=== PATIENT | female | born 1980 | race Caucasian/White ===

== ENCOUNTER 2020-08-07 11:51 | Observation (INO) | payer OTHER ==
[~2020-08-07] VITALS: Ht 167.6 cm; Wt 76.2 kg
--- NOTE | 2020-08-07 11:55 | Emergency Department Note ---
History of Present Illnes History of Present Illness History of Present Illness This is a 40 year old female arrived to the ED with right lower quadrant abdominal pain [facility] since Saturday. Patient states the pain was a strong is 9/10 but is now 3/4. Patient states she had hysterectomy and right oophorectomy secondary to cyst in the past. Onset (how long ago): day(s) Radiation: Reports non-radiation Severity: moderate Duration (how long): day(s) Timing of current episode: intermittent Progression: waxing and waning Chronicity: new Relieving factors: immobilization Exacerbating factors: movement Past Medical/Family History Physician Review I have reviewed the patient's past medical and family history. Any updates have been documented here. Past Medical History Recent Fever: No Clinical Suspicion of Infectio: No New/Unexplained Change in Ment: No Past Medical History: None Past Surgical History: Hysterectomy Social History Smoking Cessation: Never Smoker Alcohol Use: None Any Illegal Drug Use: No TB Exposure/Symptoms: No Physically hurt or threatened: No Review of Systems Review of Systems Constitutional: Reports no symptoms EENTM: Reports no symptoms Cardiovascular: Reports no symptoms Respiratory: Reports no symptoms Gastrointestinal: Reports as per HPI, Reports abdominal pain Genitourinary: Reports no symptoms Musculoskeletal: Reports no symptoms Integumentary: Reports no symptoms Neurological: Reports no symptoms Psychological: Reports no symptoms Endocrine: Reports no symptoms Hematological/Lymphatic: Reports no symptoms Physical Exam Related Data Allergies: Coded Allergies: No Known Allergies (Unverified , 08/07/20) Vital signs reviewed: Yes Physical Exam CONSTITUTIONAL Constitutional: Present well-developed, Present well-nourished HENT HENT: Present normocephalic, Present atraumatic, Present oropharynx clear/moist, Present nose normal HENT L/R: Present left ext ear normal, Present right ext ear normal EYES Eyes: Reports PERRL, Reports conjunctivae normal NECK Neck: Present ROM normal PULMONARY Pulmonary: Present effort normal, Present breath sounds normal CARDIOVASCULAR Cardiovascular: Present regular rhythm, Present heart sounds normal, Present capillary refill normal, Present normal rate GASTROINTESTINAL Abdominal: Present soft, Present bowel sounds normal, Present tender GENITOURINARY Genitourinary: Present exam deferred SKIN Skin: Present warm, Present dry MUSCULOSKELETAL Musculoskeletal: Present ROM normal NEUROLOGICAL Neurological: Present alert, Present oriented x 3, Present no gross motor or sensory deficits PSYCHOLOGICAL Psychological: Present mood/affect normal, Present judgement normal Results Laboratory Lab results reviewed: Yes Laboratory comments Laboratory Tests Test 08/07/20 14:50 08/07/20 12:20 08/07/20 12:08 White Blood Count 7.71 x10e3/uL (4.8-10.8) Red Blood Count 4.59 x10e6/uL (3.6-5.1) Hemoglobin 12.9 g/dL (12.0-16.0) Hematocrit 39.8 % (34.2-44.1) Mean Corpuscular Volume 86.7 fL (81-99) Mean Corpuscular Hemoglobin 28.1 pg (28-32) Mean Corpuscular Hemoglobin Concent 32.4 g/dL (31-35) Red Cell Distribution Width 12.3 % (11.7-14.4) Platelet Count 356 x10e3/uL (140-360) Neutrophils (%) (Auto) 62.3 % (38.7-80.0) Lymphocytes (%) (Auto) 28.8 % (18.0-39.1) Monocytes (%) (Auto) 6.7 % (4.4-11.3) Eosinophils (%) (Auto) 1.3 % (0.0-6.0) Basophils (%) (Auto) 0.6 % (0.0-1.0) Neutrophils # (Auto) 4.8 (2.1-6.9) Lymphocytes # (Auto) 2.2 (1.0-3.2) Monocytes # (Auto) 0.5 (0.2-0.8) Eosinophils # (Auto) 0.1 (0.0-0.4) Basophils # (Auto) 0.1 (0.0-0.1) Absolute Immature Granulocyte (auto 0.02 x10e3/uL (0-0.1) Sodium Level 138 mmol/L (136-145) Potassium Level 3.7 mmol/L (3.5-5.1) Chloride Level 105 mmol/L (98-107) Carbon Dioxide Level 24 mmol/L (22-29) Anion Gap 12.7 mmol/L (8-16) Blood Urea Nitrogen 10 mg/dL (7-26) Creatinine 0.82 mg/dL (0.57-1.11) Estimat Glomerular Filtration Rate > 60 ML/MIN (60-) BUN/Creatinine Ratio 12 (6-25) Glucose Level 86 mg/dL (74-118) Calcium Level 9.3 mg/dL (8.4-10.2) Total Bilirubin 0.5 mg/dL (0.2-1.2) Aspartate Amino Transf (AST/SGOT) 17 IU/L (5-34) Alanine Aminotransferase (ALT/SGPT) 15 IU/L (0-55) Alkaline Phosphatase 63 IU/L (40-150) Total Protein 7.9 g/dL (6.5-8.1) Albumin 4.1 g/dL (3.5-5.0) Globulin 3.8 g/dL (2.3-3.5) Albumin/Globulin Ratio 1.1 (0.8-2.0) Lipase 16 U/L (8-78) Urine Color Yellow (YELLOW) Urine Clarity Clear (CLEAR) Urine pH 7 (5 - 7) Urine Specific [place] 1.015 (1.010-1.025) Urine Protein Negative (NEGATIVE) Urine Glucose (UA) Negative (NEGATIVE) Urine Ketones Negative (NEGATIVE) Urine Blood Small (NEGATIVE) Urine Nitrite Negative (NEGATIVE) Urine Bilirubin Negative (NEGATIVE) Urine Urobilinogen 0.2 mg/dL (0.2 - 1) Urine Leukocyte Esterase Negative (NEGATIVE) Urine RBC 6-10 /HPF (0-5) Urine WBC 6-10 /HPF (0-5) Urine Epithelial Cells Few /LPF (NONE) Urine Bacteria Rare /HPF (NONE) Imaging Imaging results reviewed: Yes Impressions CONCLUSION: Borderline mild dilatation of the appendix without significant surrounding inflammatory changes. Early appendicitis is not completely excluded. Recommend clinical correlation. Findings suggestive of gastroenteritis, which may be infectious or inflammatory. The above findings were discussed with Dr. Nikunj Corado on 08-07-2020 at 2:10 PM. Signed by: Dr. Gonzalez Connor MD on 08/07/2020 2:10 PM Assessment & Plan Medical Decision Making MDM 40-year-old well-appearing female arrived to the ED with right lower quadrant abdominal pain. Clinically patient appears to have appendicitis. She does not have elevated WBC count and is otherwise afebrile. Case discussed with Dr. De Leon, recommended no antibiotics or pain medications at this time. Patient admitted for observation. Assessment & Plan Final Impression: (1) Appendicitis Depart Disposition: ADMITTED NIKUNJ CORADO, Aug 07, 2020 11:55
[2020-08-07] MEDS ORDERED: ONDANSETRON HCL INJ 2MG/ML 2ML 2 MG/ML VIAL IV ONE (12:10)
[2020-08-07] MEDS ORDERED: SODIUM CHLORIDE 0.9% 1000ML 1,000 ML IV STA (12:10)
[2020-08-07] MEDS ORDERED: MORPHINE SULFATE INJ 4 MG/ML INJ 1ML IV PRN (12:15)
[2020-08-07 12:33] LABS: BASOPHILS # (AUTO) 0.1 (0.0-0.1); BASOPHILS % 0.6 % (0.0-1.0); EOSINOPHILS # (AUTO) 0.1 (0.0-0.4); EOSINOPHILS % 1.3 % (0.0-6.0); HEMATOCRIT 39.8 % (34.2-44.1); HEMOGLOBIN 12.9 g/dL (12.0-16.0); LYMPHOCYTES # (AUTO) 2.2 (1.0-3.2); LYMPHOCYTES % 28.8 % (18.0-39.1); MEAN CORPUSCULAR HEMOGLOBIN 28.1 pg (28-32); MEAN CORPUSCULAR HGB CONC 32.4 g/dL (31-35); MEAN CORPUSCULAR VOLUME 86.7 fL (81-99); MONOCYTES # (AUTO) 0.5 (0.2-0.8); MONOCYTES % 6.7 % (4.4-11.3); NEUTROPHILS # (AUTO) 4.8 (2.1-6.9); NEUTROPHILS % 62.3 % (38.7-80.0); PLATELET COUNT 356 x10e3/uL (140-360); RED BLOOD COUNT 4.59 x10e6/uL (3.6-5.1); RED CELL DISTRIBUTION WIDTH 12.3 % (11.7-14.4)
[2020-08-07 12:44] LABS: CLARITY,URINE CLEAR (CLEAR); COLOR,URINE YELLOW (YELLOW); LEUKOCYTE ESTERASE ,URINE NEGATIVE (NEGATIVE); NITRITE,URINE NEGATIVE (NEGATIVE); PROTEIN,URINE DIPSTICK NEGATIVE (NEGATIVE)
[2020-08-07 12:45] LABS: BACTERIA,URINE RARE /HPF; BILIRUBIN,URINE NEGATIVE (NEGATIVE); EPITHELIAL CELLS,URINE FEW /LPF; KETONES,URINE NEGATIVE (NEGATIVE); URINE UROBILINOGEN 0.2 mg/dL (0.2 - 1)
[2020-08-07 12:50] LABS: ALANINE AMINOTRANSFERASE 15 IU/L (0-55); ALBUMIN 4.1 g/dL (3.5-5.0); ALBUMIN/GLOBULIN RATIO 1.1 (0.8-2.0); ALKALINE PHOSPHATASE 63 IU/L (40-150); ANION GAP 12.7 mmol/L (8-16); BLOOD UREA NITROGEN 10 mg/dL (7-26); BUN/CREATININE RATIO 12 (6-25); CALCIUM 9.3 mg/dL (8.4-10.2); CARBON DIOXIDE 24 mmol/L (22-29); CHLORIDE 105 mmol/L (98-107); CREATININE, SERUM 0.82 mg/dL (0.57-1.11); EST GLOMERULAR FILTRATION RATE > 60 ML/MIN (60-); GLUCOSE 86 mg/dL (74-118); POTASSIUM 3.7 mmol/L (3.5-5.1); SODIUM 138 mmol/L (136-145)
[2020-08-07] MEDS ORDERED: SODIUM CHLORIDE 0.9% 50ML 50 ML ONE (13:25)
[2020-08-07] MEDS ORDERED: IOPAMIDOL 370 MG/ML 200 ML INFUS..BTL INJ ONE (13:26)
--- NOTE | 2020-08-07 14:13 | Diagnostic Imaging Report ---
EXAM: CT Abdomen and Pelvis WITH contrast INDICATION: Abdominal Pain COMPARISON: None. TECHNIQUE: Abdomen and pelvis were scanned utilizing a multidetector helical scanner from the lung base to the pubic symphysis after administration of IV contrast. Coronal and sagittal reformations were obtained. Routine protocol was performed. Scan was performed during portal venous phase. IV CONTRAST: 100 cc of Isovue-370. ORAL CONTRAST: None. COMPLICATIONS: None RADIATION DOSE: Total DLP: 358 mGy*cm Estimated effective dose: (DLP x 0.015 x size factor) mSv CTDIvol has been reviewed. It is below the limits set by the Radiation Protocol Committee (RPC). FINDINGS: LINES and TUBES: None. LOWER THORAX: Unremarkable HEPATOBILIARY: No evidence of mass. Subcentimeter right hepatic lobe hypodensity is too small to characterize, but likely represents a cyst. No biliary ductal dilation. GALLBLADDER: No radio-opaque stones or sludge. No wall thickening. SPLEEN: No splenomegaly. PANCREAS: No focal masses or ductal dilatation. ADRENALS: No adrenal nodules KIDNEYS/URETERS: Kidneys enhance symmetrically. No evidence of hydronephrosis, solid mass, or stone. Bilateral renal cortical scarring. GI TRACT: No evidence of wall thickening or distension. The appendix is mildly dilated, measuring up to 7 mm without significant surrounding inflammatory changes (series 2, image 68). There is mild wall thickening within jejunal loops and in the stomach. The stomach is fluid-filled. PELVIC ORGANS/BLADDER: Unremarkable. LYMPH NODES: No lymphadenopathy. VESSELS: Unremarkable. PERITONEUM / RETROPERITONEUM: No free air or fluid. BONES AND SOFT TISSUES: Unremarkable. CONCLUSION: Borderline mild dilatation of the appendix without significant surrounding inflammatory changes. Early appendicitis is not completely excluded. Recommend clinical correlation. Findings suggestive of gastroenteritis, which may be infectious or inflammatory. The above findings were discussed with Dr. Nikunj Ryan on 08-07-2020 at 2:10 PM. Signed by: Dr. Gonzalez Connor MD on 08/07/2020 2:10 PM
--- NOTE | 2020-08-07 14:43 | NUR ---
DR. Pankaj LESTER IN TO SEE THE PATIENT
--- OUTSIDE RECORDS SUMMARY | 2020-08-07 14:45 | XMS REPORT | Continuity of Care Document ---
Author Author [facility] t Organization [facility] Address [address] [place] [address] Phone Unavailable Care Team Providers Care [employer] Name Role Phone Asked, Pcp No PCP Unavailable Shahram RYAN AMBICA Attphys Unavailable [place], Seven Liam Attphys [place], S Liam Attphys Payers Payer Name Policy Type Policy Number Effective Date Expiration Date S ource Problems Condition Name Condition Details Condition Category Status Onset Date Resolution Date Last Treatment Date Treating Clinician Comments Source Persistent insomnia (disorder) Persistent insomnia (disorder) Active 08/13/2016 Problem 11/29/2018 Data migrated from [employer] on 12/20/2016. Mild to moderate chronic insomnia may be playing a role. Originally documented as Persistent disorder of initiating or maintaining sleep. [facility] Active 2016-08-13 00:00:00 2018-11-29 12:03:07 Thiago Whitaker Migraine (disorder) Migr kathleen (disorder) Resolved Problem 11/29/2018 [facility] Problem Resolved 2018-11-29 12:03:07 Thiago Whitaker Neck pain (finding) Neck pain (finding) Resolved Problem 11/29/2018 [facility] Problem Resolved 2018-11-29 12:03:07 Thiago Whitaker Persistent disorder of initiating or maintaining sleep Persistent disorder of initiating or maintaining sleep Active Problem 08/14/2016 Liam Gandhi Problem Active 2016-08-14 02:03:49 Thiago Whitaker Common migraine with intractable migraine Common migraine with intractable migraine Active Diagnosis 08/14/2016 Liam Gandhi Diagnosis Active 2016-08-14 02:03:49 Thiago Whitaker History of Past Illness Condition Name Condition Details Condition Category Status Onset Date Resolution Date Last Treatment Date Treating Clinician Comments Source Refractory migraine without aura (disorder) Refractory migraine without aura (disorder) Resolved 08/13/2016 Problem 11/29/2018 Data migrated from [employer] on 12/20/2016. The patient has prolonged common migraine with 4-9 migraines per month. Originally documented as Common migraine with intractable migraine. [facility] Problem Resolved 2016-08-13 00:00:00 2018-11-29 12:03:07 2018-11-29 12:03:07 Jonna Whitaker Allergies, Adverse Reactions, Alerts Allergy Name Allergy Type Status Severity Reaction(s) Onset Date Inacti ve Date Treating Clinician Comments Source No Known Allergies DA Active U 2018-08-04 00:00:00 [facility] No Known Allergies DA Active U 2018-07-30 00:00:00 [facility] N.K.D.A. N.K.D.A. Active Info Not Available 2016-08-13 00:00:00 Thiago Whitaker No Known Allergies DA Active U 2013-01-02 00:00:00 [facility] Family History Family Member Diagnosis Comments Start Date Stop Date Source Natural brother Heart disease Leonid Laughlin Natural father Hypertension Dario Laughlin Natural sister Heart disease Dario Laughlin Social History Social Habit Start Date Stop Date Quantity Comments Source Sex Assigned At Irina fan Truman Tobacco use and exposure 2018-06-24 00:00:00 2018-06-24 00:00:00 Shahid arguelles used Dario Laughlin Alcohol intake 2018-06-24 00:00:00 2018-06-24 00:00:00 Current drinker of alcohol (finding) Dario Laughlin Social History 2017-04-26 14:37:47 2017-04-26 14:37:47 Thiago Whitaker Highestlevelofeducationcompleted: 2016-08-13 00:00:00 2016-08-13 00:0 0:00 Thiago Whitaker Smoking Status Start Date Stop Date Source Never smoker Dario odonnell Medications Ordered Medication Name Filled Medication Name Start Date Stop Da te Current Medication? Ordering Clinician Indication Dosage Frequency Signature (SIG) Comments Components Source SUMAtriptan (IMITREX) 50 MG tablet 2018-04-15 13:58:48 Yes 50mg Take 50 mg by mouth once as needed for migraine. May repeat in 2 hours if unresolved. Do not exceed 200 mg in 24 hours. Leonid [place] Truman SUMAtriptan 50 mg oral tablet 2017-11-06 18:55:45 Yes 50 mg = 1 tab, PO, ONCE, PRN Headache, may repeat dose in 2 hours if needed, # 27 tab, 3 Refill(s), Pharmacy: [facility] [place] SUMAtriptan (IMITREX) 50 MG tablet 2017-11-06 00:00:00 Yes
50 mg = 1 tab, PO, ONCE, PRN Headache, may repeat dose in 2 hours if needed, # 27 tab, 3 Refill(s), Pharmacy: [facility] [place] SUMAtriptan 50 mg oral tablet 2017-10-30 16:36:02 No 50 mg = 1 tab, PO, ONCE, PRN Headache, may repeat dose in 2 hours if needed, # 27 tab, 3 Refill(s), [facility] Mot[facility] 800 mg oral tablet 2017-10-30 16:08:00 Yes 800 mg = 1 tab, PO, Daily, 0 Refill(s) Thiago Whitaker Fluconazole 2016-08-14 02:03:[address] Liam Gandhi (Prior Auth: Rx Ref#:[id number]) [facility] [place] Tylenol Extra Strength 2016-08-14 02:03:[address] Hanh Gandhi 4 tablets as needed Thiago Whitaker Fioricet 2016-08-13 00:00:[address] Liam Gandhi 1-2 capsules as needed [facility] [place] Sumatriptan Succinate 2016-08-13 00:00:[address] Liam Gandhi 1 tablet as needed one time Thiago Whitaker Vital Signs Vital Name Observation Time Observation Value Comments Source Weight 2017-10-30 15:36:00 Thiago Whitaker Systolic (mm Hg) 2017-10-30 15:36:00 [facility] [place] Diastolic (mm Hg) 2017-10-30 15:36:00 [facility] [place] Heart Rate 2017-10-30 15:36:00 [facility] [place] Weight 2016-08-13 18:00:00 [facility] [place] Height 2016-08-13 18:00:00 [facility] [place] Heart Rate 2016-08-13 18:00:00 [facility] [place] Diastolic (mm Hg) 2016-08-13 18:00:00 [facility] [place] Systolic (mm Hg) 2016-08-13 18:00:00 Ronnell [facility] [place] Procedures Procedure Date / Time Performed Performing Clinician Renuka piedra Tubal ligation 2003-01-30 05:00:00 [facility] Her mcdonald section 1996-08-05 05:00:00 [facility] Cliff rmann Plan of Care Planned Activity Planned Date Details Comments Source Future Scheduled Test 2020-05-21 00:00:00 INFLUENZA VACCINE [code = INFLUENZA VACCINE] Dario Laughlin Future Scheduled Test 1999 00:00:00 Screening for rupesh gnant neoplasm of cervix (procedure) [code = 193752667] Dario odonnell Encounters Start Date/Time End Date/Time Encounter Type Admission Type Attendi [facility] Care Department Encounter ID Source 2018-05-12 12:45:00 2018-05-12 12:45:00 Outpatient Hiram, P nick [place] MHMISCHER MHMISCHER [id number] 2018-05-12 12:45:00 2018-05-12 12:45:00 Outpatient Hiram, P nick [place] MHMISCHER MHMISCHER [id number] 2017-11-05 11:34:00 2017-11-06 23:59:59 Outpatient MHMIS JUANI MHMISCHER [id number] 2017-10-30 09:45:00 2017-10-30 23:59:59 Outpatient [place], Phi lip S MHMISCHER MHMISCHER [id number] 2017-10-30 09:45:00 2017-10-30 23:59:59 Outpatient Hiram, Phi lip S MHMISCHER MHMISCHER [id number] 2017-10-30 09:45:00 2017-10-30 23:59:59 Outpatient Hiram, Phi lip S MHMISCHER MHMISCHER [id number] 2016-08-13 13:00:00 2016-08-13 13:00:00 Outpatient Liam Gandhi MD, KLARISSA Gandhi MD, KLARISSA [id number] [employer] Results Test Description Test Time Test Comments Results Result Comments Source CT ABDOMEN/PELVIS W 2020-08-07 13:47:[address] [facility] : 1980 Sex: F [place] [address] Patient Name: JESUS DUARTE MR #: [id number] : 1980 Age/Sex: 40/F Req #: [id number] Adm Physician: Ordered by: CHRISTIANO RYAN DO Report #: [id number] Location: ER Room/Bed: Procedure: [id number] CT/CT ABDOMEN/PELVIS W Exam Date: 08/07/20 Exam Time: 1324 REPORT STATUS: Signed EXAM: CT Abdomen and Pelvis WITH contrast INDICATION: Abdominal Pain COMPARISON: None. TECHNIQUE: Abdomen and pelvis were scanned utilizing a multidetector helical scanner from the lung base to the pubic symphysis after administration of IV contrast. Coronal and sagittal reformations were obtained. Routine protocol was performed. Scan was performed during portal venous phase. IV CONTRAST: 100 cc of Isovue-370. ORAL CONTRAST: None. COMPLICATIONS: None RADIATION DOSE: Total DLP: 358 mGy*cm Estimated effective dose: (DLP x 0.015 x size factor) mSv CTDIvol has been reviewed. It is below the limits set by the Radiation Protocol Committee (RPC). FINDINGS: LINES and TUBES: None. LOWER THORAX: Unremarkable HEPATOBILIARY: No evidence of mass. Subcentimeter right hepatic lobe hypodensity is too small to characterize, but likely represents a cyst. No biliary ductal dilation. GALLBLADDER: No radio-opaque stones or sludge. No wall thickening. SPLEEN: No splenomegaly. PANCREAS: No focal masses or ductal dilatation. ADRENALS: No adrenal nodules KIDNEYS/URETERS: Kidneys enhance symmetrically. No evidence of hydronephrosis, solid mass, or stone. Bilateral renal cortical scarring. GI TRACT: No evidence of wall thickening or distension. The appendix is mildly dilated, measuring up to 7 mm without significant surrounding inflammatory changes (series 2, image 68). There is mild wall thickening within jejunal loops and in the stomach. The stomach is fluid-filled. PELVIC ORGANS/BLADDER: Unremarkable. LYMPH NODES: No lymphadenopathy. VESSELS: Unremarkable. PERITONEUM / RETROPERITONEUM: No free air or fluid. BONES AND SOFT TISSUES: Unremarkable. CONCLUSION: Borderline mild dilatation of the appendix without significant surrounding inflammatory changes. Early appendicitis is not completely excluded. Recommend clinical correlation. Findings suggestive of gastroenteritis, which may be infectious or inflammatory. The above findings were discussed with Dr. Christiano Ryan on 08-07-2020 at 2:10 PM. Signed by: Dr. Hugo Vazquez MD on 08/07/2020 2:10 PM Dictated By: HUGO VAZQUEZ MD 1410 Transcribed By: MALAIKA on 08/07/20 1410 COPY TO: CHRISTIANO RYAN DO FLUID, OTHER 2018-08-07 11:06:00 RUN DATE: 08/07/18 [facility] PAGE 1 RUN TIME: 1348 Specimen Inquiry RUN USER: INTERFACE PATIENT: JESUS DUARTE LOC: QI U #: [id number] AGE/SX: 38/F ROOM: [facility] RE08/04/18REG DR: Tiffany George MD : 76 BED: A DIS: 08/05/18 STATUS: DIS Jayna TLOC: SPEC #: [id number] RECD: 08/04/18 STATUS: LANETTE GONZALES #: [id number] OLIVIA: 08/04/18- [facility] DR: Tiffany George MD ENTERED: 08/04/18 SP TYPE: ANGIE WOO DR: ORDERED: CYTOLOGY/SACCOM CODES: A97548 - CYSTIC DUCT PROCEDURES: CYTOLOGY/SACCOM (Incomplete) TISSUES: CYSTIC DUCT - CYST FLUID CLINICAL HISTORY 38 year old, right ovarian mass, pelvic pain, family history of ovarian cancer (wpd) FINAL DIAGNOSIS Cyst fluid, cytology - negative for malignant cells Tissue code 1 CPT code(s): 81380 cds/wpd 08/06/18 @ 1657 GROSS DESCRIPTION The specimen is received in a container, labeled with the patient's name and designated "cyst fluid" and consists of 45 cc of yellow fluid. Two smears were prepared. No cell block was prepared. njp/wpd 08/04/18 @ 1459 MICROSCOPIC DESCRIPTION Cyst fluid contains benign cells with foamy cytoplasm consistent with macrophages. No malignant cells are identified. cds/wpd 08/06/18 @ 1954 COMMENT: The corresponding surgical pathology [id number] showed: Uterus, cervix, bilateral fallopian tubes and right ovary, hysterectomy, bilateral sa lpingectomy and right oophorectomy: - cervix, no significant pathologic alteration - benign proliferative endometrium - myometrium - no significant pathologic alteration - fibrous serosal uterine adhesions - benign serous cystadenoma of right ovary, 3.5 cm - benign paratubal cysts, right fallopian tube - left fallopian tube, no significant pathologic alteration CONTINUED ON NEXT PAGE RUN DATE: 08/07/18 [facility] PAGE 2 RUN TIME: 1348 Specimen Inquiry RUN USER: INTERFACE SPEC #: [id number] PATIENT: JESUS DUARTE #[id number] (Continued) MICROSCOPIC DESCRIPTION (Continued) Peritoneal implant, excision: - endosalpingiosis, no atypia identified lsh/wpd 08/04/18 @ 1916 Signed Rico Olivares 08/07/18 1106 END OF REPORT UTERUS,OTHER THAN PROLAPSE/VICTOR MANUEL 2018-08-05 19:21:00 DATE: 08/06/18 [facility] PAGE 1 RUN TIME: 1728 Specimen Inquiry RUN USER: INTERFACE PATIENT: JESUS DUARTET #: [id number] LOC: QI U #: [id number] AGE/SX: 38/F ROOM: [facility] RE08/04/18REG DR: Tiffany George MD : [birth year] BED: A DIS: 08/05/18 STATUS: DIS Jayna TLOC: SPEC #: [id number] RECD: 08/04/18-1338 STATUS: LANETTE RE #: [id number] OLIVIA: 08/04/18- SUBM DR: Tiffany George MD ENTERED: 08/04/18-1340 SP TYPE: UTERUSOTH OTHR DR: ORDERED: LEVEL V SURGICA CODES: R42141 - UTERUS, NOS PROCEDURES: LEVEL V SURGICA (Incomplete) TISSUES: UTERUS, NOS - UTERUS/CERVIX/BILATERAL TUBES/ RIGHT OVARY FOREIGN BODY - PERITONEAL IMPLANT CLINICAL HISTORY 38 year old, right ovarian mass, pelvic pain, family history of ovarian cancer (wpd) FINAL DIAGNOSIS Uterus, cervix, bilateral fallopian tubes and right ovary, hysterectomy, bilateral salpingectomy and right oophorectomy: - cervix, no significant pathologic alteration - benign proliferative endometrium - myometrium - no significant pathologic alteration - fibrous serosal uterine adhesions - benign serous cystadenoma of right ovary, 3.5 cm - benign paratubal cysts, right fallopian tube - left fallopian tube, no significant pathologic alteration Peritoneal implant, excision: - endosalpingiosis, no atypia identified Tissue code 1 CPT code(s): 88350, 10425 [facility]/wpd 08/04/18 @ 1916 GROSS DESCRIPTION Specimen #1 is received in formalin in a container, labeled with the patient's name and designated "uterus, cervix, bilateral tubes, right ovary". It consists of a 9 x 7 x 5 cm hysterectomy specimen with attached right adnexa and a separate left fallopian tube with fimbria. The uterus weighs 97 gm. The serosa is torres with focal red fibrous adhesions in the lower anterior wall. The cervical external os measures 0.8 cm. The portio vaginalis measures 2.9 cm. Scanner Operator sections are submitted in A. CONTINUED ON NEXT PAGE RUN DATE: 08/06/18 [facility] PAGE 2 RUN TIME: 1728 Specimen Inquiry RUN USER: INTERFACE SPEC #: [id number] PATIENT: JESUS DUARTE #[id number] (Continued) GROSS DESCRIPTION (Continued) The endometrium measures up to 0.2 cm. The myometrium measures up to 2.2 cm thick and contains no gross lesions. Scanner Operator sections are submitted in B and C. The right adnexa consists of a 4.5 x 3 x 1.5 cm ovary with an attached 7 x 0.5 x 0.5 cm segment of fallopian tube with fimbria with healed previous tubal ligation. The ligation site contains a 1.2 cm clip. The fallopian tube contains paratubal cysts measuring 3 cm with off-white, smooth and glistening internal linings and containing scant clear, thin fluid. The ovary contains a cyst measuring 3.5 cm with a torres-yellow, smooth and glistening internal lining and containing scant clear, thin fluid. The entire ovary, site safety representative section of the fallopian tube and entire paratubal cyst are submitted in D - M. The left fallopian tube with fimbria and healed previous tubal ligation measures 8 x 0.3 x 0.3 cm. The ligation site contains two identical clips, each measuring 1.2 cm. The entire fimbria and two cross-sections of the tube are submitted in N. The remaining fallopian tubes are submitted in Re1- Re3. Specimen #2 is received in a formalin-filled container, labeled with the patient's name and designated "peritoneal implant". The specimen consists of a 0.5 cm portion of red tissue and is submitted in O. /wpd 08/04/18 @ 1648 MICROSCOPIC DESCRIPTION Specimen #1 - the endocervix has focal tubular metaplasia. The endometrium is proliferative and the myometrium is unremarkable. Fibrous uterine serosal adhesions are present. The right ovary contains a benign serous cyst and there are paratubal cysts of the right fallopian tube. The left fallopian tube is unremarkable. Specimen #2 c onsists of a fragment of peritoneal tissue with a cyst lined with tubal epithelium. No endometrial stromal identified. However, there is hemosiderin the wall. [facility]/wpd 08/05/18 @ 1914 Signed Lilliana Gordillo MD 08/05/18 192 END OF REPORT
--- OUTSIDE RECORDS SUMMARY | 2020-08-07 14:45 | XMS REPORT | Continuity of Care Document ---
Author Author JESUS Worthington [employer] Address Unknown Phone Unavailable Care Team Providers Care Chief Dietitian Name Role Phone [employer] Unavailable Un available Problems Problem Status Onset Date Classification Date Reported Comments Source Persistent insomnia (disorder) Active 08/13/2016 Problem 11/29/2018 Data migrated from [employer] on 12/20/2016. Mild to moderate chronic insomnia may be playing a role. Originally documented as Persistent disorder of initiating or maintaining sleep. [facility] Refractory migraine without aura (disorder) Resolved 08/13/2016 Problem 11/29/2018 Data migrated from [employer] on 12/20/2016. The patient has prolonged common migraine with 4-9 migraines per month. Originally documented as Common migraine with intractable migraine. [facility] Migraine (disorder) Resolved Problem 11/29/2018 [facility] Neck pain (finding) Resolved Problem 11/29/2018 [facility] Persistent disorder of initiating or maintaining sleep Active Problem 08/14/2016 Liam Madrigalum Common migraine with intractable migraine Active Diagnosis 08/14/2016 Liam Gandhi Medications Medication Details Route Status Patient Instructions Ordering Provider Order Date Source SUMAtriptan 50 mg oral tablet 50 mg = 1 tab, PO, ONCE, PRN Headache, may repeat dose in 2 hours if needed, # 27 tab, 3 Refill(s), Pharmacy: [facility] Active 11/06/2017 [facility] SUMAtriptan 50 mg oral tablet 50 mg = 1 tab, PO, ONCE, PRN Headache, may repeat dose in 2 hours if needed, # 27 tab, 3 Refill(s), Pharmacy: [facility] No Longer Active 10/30/2017 [facility] Motrin 800 mg oral tablet 800 mg = 1 tab, PO, Daily, 0 Refill(s) Active 10/30/2017 [facility] Fioricet 1-2 capsules as needed Orally No Longer Active 50-300-40 MG Orally every 4 hrs Dona 08/13/2016 Liam Gandhi Sumatriptan Succinate 1 tablet as needed one time Orally Active 50 mg Orally twice a day (bid) as needed (prn) Manati 08/13/2016 Liam Dona Fluconazole (Prior Auth: Rx Re f#:[id number]) Oral Active 150 MG Oral Manati Liam Dona Tylenol Extra Strength 4 table ts as needed Orally Active 500 MG Orally every 6 hrs Dona Liam Manati Allergies, Adverse Reactions, Alerts Substance Category Reaction Severity Reaction type Status Date Reported Comments Source N.K.D.A. Adverse Reaction Info Not Available Adverse Reaction Active 08/13/2016 Liam Manati Immunizations No Data Provided for This Section Results No Data Provided for This Section Pathology Reports No Data Provided for This Section Diagnostic Reports No Data Provided for This Section Consultation Notes No Data Provided for This Section Discharge Summaries No Data Provided for This Section History and Physicals No Data Provided for This Section Vital Signs Vital Sign Value Date Comments Source Weight 74.318 10/30/2017 [facility] Systolic (mm Hg) 114 10/30/2017 [facility] Diastolic (mm Hg) 72 10/30/2017 [facility] Heart Rate 82 10/30/2017 [facility] Weight 150.6 08/13/2016 Liam Dona Height 66.5 08/13/2016 Liam Manati Heart Rate 85 08/13/2016 Liam Dona Diastolic (mm Hg) 66 08/13/2016 Liam Dona Systolic (mm Hg) 113 08/13/2016 Liam Dona Encounters Location Location Details Encounter Type Encounter Number Reason For Visit Attending Provider ADM Date DC Date Status Source Outpatient [id number] LIAM DONA 08/13/2016 Active Thiago Gandhi MD, PA increasing migraines, no imaging to bring [id number] 08/13/2016 08/13/2016 Liam Manati Outpatient [id number] LIAM DONA 04/29/2017 Active [facility] [id number] LIAM DONA 10/30/2017 Active Thiago Whitaker [facility] Outpatient [id number] Liam Manati 10/30/2017 10/31/2017 [facility] Neurosurgery [facility] Phone Message [id number] 11/05/2017 11/07/2017 [facility] [id number] LIAM DONA 05/12/2018 Active [facility] Neurology [facility] Ambulatory Pre-Reg [id number] Liam Dona 05/12/2018 05/12/2018 [facility] Procedures Procedure Code Date Perfomer Comments Source Tubal ligation [id number] 01/30/2003 [facility] section [id number] 08/05/1996 [facility] Assessment and Plan No Data Provided for This Section Plan of Care No Data Provided for This Section Social History Social History Date Source Social History TypeResponse Substance Abuse Use: None. Employment/School Status: Employed. Highest education level: High school. Alcohol Current Smoking Status Never smoker; Exposure to Tobacco Smoke Unable to obtain; Cigarette Smoking Last 365 Days Unable to obtain; Reg Smoking Cessation Counseling No entered on: 10/30/17 04/26/2017 [facility] Social History ElementQualifiersDate Rep orted Highest level of education completed: . High school diploma Aug 13, 2016 Tobacco Use: . Are you a: never smoker Aug 13, 2016 Use of recreational / street drugs? . Answer: No Aug 13, 2016 Marital Status: . Aug 13, 2016 Caffeine intake? . Status: Yes Aug 13, 2016 Do you exercise? . Answer: Yes Aug 13, 2016 Do you drink alcohol? . Status: Yes, Type: Socially Aug 13, 2016 Occupation: . [employer]. Aug 13, 2016 08/13/2016 Liam Madrigalum Family History No Data Provided for This Section Advance Directives No Data Provided for This Section Functional Status No Data Provided for This Section
--- OUTSIDE RECORDS SUMMARY | 2020-08-07 14:45 | XMS REPORT | Clinical Summary ---
Author Author [facility] Organization [facility] Address Unknown Phone Unavailable Care Team Providers Care Turning Machine Set Up Operator Name Role Phone Asked, No Pcp PCP Unavailable Allergies No Known Active Allergies Medications End Date Status Medication Sig Dispensed Refills Start Date Active SUMAtriptan (IMITREX) 50 Take 50 mg by 0 MG tablet mouth once as needed for migraine. May repeat in 2 hours if unresolved. Do not exceed 200 mg in 24 hours. Active SUMAtriptan (IMITREX) 50
50 mg = 0 / /201 MG tablet 1 tab, PO, 8 ONCE, PRN Headache, may repeat dose in 2 hours if needed, # 27 tab, 3 Refill(s), Pharmacy: [facility] Active Problems No known active problems Surgical History Surgery Date Site/Laterality Comments OVARIAN CYST REMOVAL SECTION ORTHOPEDIC SURGERY bilat foot TUBAL LIGATION DILATION AND CURETTAGE OF UTERUS Medical History Medical History Date Comments Anemia Migraines Urinary tract bacterial infections Family History Medical History Relation Name Comments Heart disease Brother Hypertension Father Heart disease Sister Relation Name Status Comments Brother Father Sister Social History Date Tobacco Use Types Packs/Day Years Used Never Smoker Smokeless Tobacco: Never Used Drinks/Week oz/Week Comments Alcohol Use 1 Glasses of wine 1.0 Yes Sex Assigned at Date Recorded Not on file Obstetrics History Term Pre Abrt (TAB) (SAB) (Ect) Mult Lvng Comments Grav Para 3 Date GA Total Labor Labor/2nd/3rd Weight Sex Delivery Anes PTL Monica A1 A5 Name Clin Outcome Last Filed Vital Signs Not on file Plan of Treatment Health Maintenance Due Date Last Done Comments CERVICAL CANCER SCREENING 1999 INFLUENZA VACCINE 05/21/2020 Results Not on fileafter 08/07/2019 Insurance Type Payer Benefit Subscriber ID Effective Phone Address Plan / Dates Group O [employer] CIGNA OPEN [id number] [id number] ACCESS/NET resent WORK Advance Directives For more information, please contact: [phone] Patient [employer] Explanation Type Date Recorded Advance Directives, Living Will and 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
[2020-08-07] MEDS ORDERED: SODIUM CHLORIDE 0.9% 1000ML 1,000 ML IV SCH (15:00)
[2020-08-07] MEDS ORDERED: ACETAMINOPHEN 325 MG TAB ONE (15:06)
[2020-08-07] MEDS: SODIUM CHLORIDE 0.9% 1000ML 1,000 ML IV SCH ×2 (15:09→22:29)
[2020-08-07 15:42] LABS: PREGNANCY TEST, URINE NEGATIVE (NEGATIVE)
[2020-08-07 15:43] VITALS: BP 114/76
[2020-08-07 16:02] VITALS: BP 114/76
[2020-08-07 16:04] VITALS: BP 114/76
--- NOTE | 2020-08-07 16:08 | History and Physical ---
HISTORY OF PRESENT ILLNESS: I have been asked to see and admit this patient, Ms. Jacy Menchaca, who is a 40-year-old female by emergency room staff because of complaints of right lower quadrant pain to rule out appendicitis. The patient states that on Saturday, she developed pain in the right lower quadrant was gradual in onset, but became very severe on Saturday night, she thought of going to the emergency room, but felt a little bit better on Saturday and did not. The patient continued to have pain and then presented to a local emergency room for evaluation of her pain. At that place, they did not have doing a full workup including x-rays, and then she was transferred or sent to [facility] for further evaluation. In the emergency room, she had a CT scan of the abdomen, and that revealed some mild dilatation of the appendix and early appendicitis could not be excluded. There was no significant surrounding inflammatory changes. Her white count was normal. The patient's CAT scan also was interpreted as pelvic organ/bladder as unremarkable. Of note is the fact that this patient had a hysterectomy and a right salpingo-oophorectomy in the past with the right ovary preserved. The patient's labs revealed a normal white count and normal electrolytes. The urine shows some rbc's, but there is no evidence of infection. A urine culture and sensitivity have been ordered. PAST MEDICAL HISTORY: The patient's past medical history is unremarkable. PAST SURGICAL HISTORY: As stated, laparoscopic hysterectomy, and right oophorectomy. ALLERGIES: SHE HAS NO KNOWN ALLERGIES. MEDICATIONS: She does not take any medicines on a regular basis. She does not drink, does not smoke. FAMILY HISTORY: Noncontributory. REVIEW OF SYSTEMS: Remarkable for what has been stated. She does not complain of any symptoms compatible with COVID, such as high fevers, cough, loss of smell, etc., etc. PHYSICAL EXAMINATION: GENERAL: Reveals a 40-year-old female, in no acute distress. She is awake and alert. HEAD, EYES, EARS, NOSE, AND THROAT: Unremarkable. LUNGS: Clear. HEART: Reveals regular sinus rhythm. ABDOMEN: She has normal bowel sounds. The abdomen is soft and nondistended. There is a well localized tenderness in the right lower quadrant. There is no guarding, but there is some mild rebound. EXTREMITIES: Reveal no clubbing, cyanosis, or edema. NEUROLOGICAL: Nonfocal. ASSESSMENT: The right lower quadrant pain, someone who has an absent right ovary, and an absent uterus with preservation of the left ovary. This obviously rules out ectopic . The patient has right lower quadrant tenderness and because of that and the mild dilatation appendix, she has been admitted for observation. We will reexamine and repeat labs and if the pain does not resolve, then we will perform laparoscopy. If she resolves her pain, then we will discharge her home. MD STEPHANI Hicks/ELL /[id number]
[2020-08-07] MEDS ORDERED: ACETAMINOPHEN 325 MG TAB PO ONE (18:00)
[2020-08-07] MEDS ORDERED: ACETAMINOPHEN 325 MG TAB PO PRN (18:45)
[2020-08-07 20:14] VITALS: BP 108/71
[2020-08-07 21:00] VITALS: BP 108/71
--- NOTE | 2020-08-07 22:30 | NUR ---
Call from Dr Dawood De Leon. New order to stop all pain medications: morphine and tylenol. Call MD if having pain. CBC, BMP in am
[2020-08-08] VITALS (7 sets, daily range): BP systolic 104–120; BP diastolic 61–75
[2020-08-08] MEDS ORDERED: ONDANSETRON HCL INJ 2MG/ML 2ML 2 MG/ML VIAL IV PRN (05:15)
--- NOTE | 2020-08-08 05:16 | NUR ---
Spoke to Dr Dawood De Leon regarding patient c/o nausea. Pain is same at 4/10. No medication for nausea PRN. New order for zofran 4 mg IV Q 4HRS PRN and call [facility] and add patient to surgery schedule: wait to discuss with patient until MD sees patient. Also place order for 12 lead EKG.
[2020-08-08] MEDS: SODIUM CHLORIDE 0.9% 1000ML 1,000 ML IV SCH ×2 (06:00→14:18)
[2020-08-08 06:09] LABS: BASOPHILS # (AUTO) 0.1 (0.0-0.1); BASOPHILS % 0.8 % (0.0-1.0); EOSINOPHILS # (AUTO) 0.1 (0.0-0.4); EOSINOPHILS % 1.6 % (0.0-6.0); HEMATOCRIT 36.6 % (34.2-44.1); HEMOGLOBIN 11.9 g/dL (12.0-16.0); LYMPHOCYTES # (AUTO) 1.9 (1.0-3.2); LYMPHOCYTES % 31.2 % (18.0-39.1); MEAN CORPUSCULAR HEMOGLOBIN 28.7 pg (28-32); MEAN CORPUSCULAR HGB CONC 32.5 g/dL (31-35); MEAN CORPUSCULAR VOLUME 88.2 fL (81-99); MONOCYTES # (AUTO) 0.4 (0.2-0.8); MONOCYTES % 6.9 % (4.4-11.3); NEUTROPHILS # (AUTO) 3.6 (2.1-6.9); NEUTROPHILS % 59.2 % (38.7-80.0); PLATELET COUNT 286 x10e3/uL (140-360); RED BLOOD COUNT 4.15 x10e6/uL (3.6-5.1); RED CELL DISTRIBUTION WIDTH 11.9 % (11.7-14.4)
[2020-08-08 06:39] LABS: ANION GAP 11.8 mmol/L (8-16); BLOOD UREA NITROGEN 8 mg/dL (7-26); BUN/CREATININE RATIO 12 (6-25); CALCIUM 8.3 mg/dL (8.4-10.2); CARBON DIOXIDE 21 mmol/L (22-29); CHLORIDE 108 mmol/L (98-107); CREATININE, SERUM 0.66 mg/dL (0.57-1.11); EST GLOMERULAR FILTRATION RATE > 60 ML/MIN (60-); GLUCOSE 70 mg/dL (74-118); POTASSIUM 3.8 mmol/L (3.5-5.1); SODIUM 137 mmol/L (136-145)
--- NOTE | 2020-08-08 07:15 | NUR ---
Bedside report and walking rounds completed with oncoming nurse. Patient in bed with call light within reach. No issues or concerns noted.
[2020-08-08] MEDS ORDERED: BUPIVACAINE 0.25% 30ML SDV INJ ONE (09:59)
[2020-08-08] MEDS ORDERED: CEFOXITIN 1GM/0.9% NS 50ML 50 ML IV ONE (10:30)
[2020-08-08] MEDS ORDERED: MIDAZOLAM HCL 2 MG/2 ML VIAL ONE (12:43)
[2020-08-08] MEDS ORDERED: FENTANYL CITRATE/PF 100MCG/2 ML INJ ONE (12:43)
[2020-08-08] MEDS ORDERED: PROPOFOL IV EMULSION 10 MG/ML 20 ML VIAL ONE (12:55)
[2020-08-08] MEDS ORDERED: NEOSTIGMINE 1 MG/ML 10ML VIAL ONE (12:55)
[2020-08-08] MEDS ORDERED: GLYCOPYRROLATE INJ 0.2 MG/ML VIAL ONE (12:55)
[2020-08-08] MEDS ORDERED: ROCURONIUM BROMIDE 10 MG/ML 5ML VIAL IV ONE (12:55)
[2020-08-08] MEDS ORDERED: LIDOCAINE HCL 2% LOCAL INJ 5 ML SDV VIAL INJ ONE (12:55)
[2020-08-08] MEDS ORDERED: ONDANSETRON HCL INJ 2MG/ML 2ML 2 MG/ML VIAL ONE (12:55)
[2020-08-08] MEDS ORDERED: KETOROLAC TROMETHAMINE 30 MG/ML VIAL ONE (12:55)
[2020-08-08] MEDS ORDERED: DEXAMETHASONE SOD PHOS INJ 4 MG/ML VIAL ONE (12:55)
[2020-08-08] MEDS ORDERED: SEVOFLURANE INHAL SOLN 250 ML PEN BTL ONE (12:55)
--- NOTE | 2020-08-08 14:07 | Operative Report ---
DATE OF PROCEDURE: SURGEON: Anthony De Leon MD PREOPERATIVE DIAGNOSIS: Right lower quadrant abdominal pain, possible appendicitis. POSTOPERATIVE DIAGNOSIS: Right lower quadrant abdominal pain, possible appendicitis pending final path report. PROCEDURE PERFORMED: Diagnostic laparoscopy and appendectomy. ANESTHESIA: General. ESTIMATED BLOOD LOSS: Minimal. DRAINS: None. COMPLICATIONS: None. INDICATION AND FINDINGS: The patient is a pleasant 40-year-old female admitted complaining of right lower quadrant pain since the day prior to admission. She presented to the emergency room. A CT scan revealed a borderline appendix and a white count that was normal. On physical examination, she had deep right lower quadrant pain with some mild deep rebound but no guarding. The patient was observed overnight and she persisted with the pain and nausea. It was decided to proceed with diagnostic laparoscopy. INTRAOPERATIVE FINDINGS: The patient was status post hysterectomy via a laparoscopy. The uterus and right ovary were absent. There was left ovary, which had been preserved, appeared to be normal. The appendix was slightly thickened with some increased vascularity. The small bowel was run feet retrogradely for several feet and it was all normal as was the cecum and the ascending colon. There was what appeared to be small vascular looking lesion in the lower part of the bladder. There was no other significant findings. The appendectomy was performed uneventfully using the stapler technique. DESCRIPTION OF PROCEDURE: With the patient lying on the operative table in the supine position after administration of general anesthesia, she was prepped and draped for laparoscopic appendectomy. The procedure was begun by establishing the pneumoperitoneum in the umbilical site after stab wound was made on the right upper quadrant and placing a Veress needle after the pneumoperitoneum was insufflated to 15 mm of pressure. We then placed an 11/12 trocar in the umbilical site and finally the right lower quadrant 5 mm trocar. Upon entering the abdomen, we performed laparoscopy. The findings noted above were seen. We identified the appendix which appeared to be slightly engorged as previously described. We then performed the appendectomy after mobilizing the appendix and firing the Endo-USHA stapler with a blue load and the Endo-USHA white load, transected and detaching the appendix in two passes of the stapler. At this point, we then removed the appendix through the umbilical port site using an endobag. We then continued the exploration of the pelvis as I said we found that there was a normal left ovary with an absent right ovary and uterus. There was a small what appeared to be vascularized lesion over the lower aspect of the bladder in the pelvis and that was left alone for fear of biopsy in that would produce bleeding or perforation of the bladder. We went ahead and irrigated the operative field. There was no bile leak. There was no cecal leak. No bleeding. We released the pneumoperitoneum and closed the wound using 0-Vicryl for the umbilical port, 3-0 Vicryl for the subcutaneous tissue in that location. The skin of all the port was closed using 5-0 subcuticular Vicryl. Sterile dressing was applied. She tolerated the procedure well, taken to recovery room in stable condition. MD STEPHANI Hicks/ELGIN /[id number]
--- NOTE | 2020-08-08 19:00 | NUR ---
RECEIVED PATIENT IN BEDSIDE SHIFT REPORT. PATIENT RESTING IN BED AT THIS TIME. A&OX4. NO PAIN REPORTED. NO S&S OF DISTRESS NOTED. L AC 20G RUNNING NS @ 125ML/HR, ASYMPTOMATIC. NO DRAINAGE NOTED FROM 3 ABD TROCHAR SITES, DRESSING C/D/I. BED LOCKED IN LOWEST POSITION, SIDE RAILS UPX2, CALL LIGHT IN REACH.
[2020-08-08] MEDS ORDERED: HYDROCODONE/APAP 7.5MG-325MG 1 EA TAB PO PRN (21:30)
[2020-08-08] MEDS ORDERED: ACETAMINOPHEN 325 MG TAB PO PRN (21:30)
[2020-08-09 00:06] VITALS: BP 99/64
[2020-08-09] MEDS: SODIUM CHLORIDE 0.9% 1000ML 1,000 ML IV SCH ×2 (02:28→07:19)
[2020-08-09 05:12] VITALS: BP 97/62
[2020-08-09 07:36] VITALS: BP 111/68
[2020-08-09 07:37] VITALS: BP 111/68
[2020-08-09 11:28] VITALS: BP 93/61
--- NOTE | 2020-08-09 13:14 | NUR ---
Received discharge order from Dr. Pankaj De Leon. Patient was given discharge instructions, prescription, and follow up instructions. Patient verbalized understanding. Patient IV removed at 1250 and covered with a C/D/I. Patient 3 trocar sites C/D/I and given very good instructions on how to keep them clean until she sees the Doctor. Patient verbalized understanding. Patient wheeled to car at 1307. No other issues or complaints.
== END 2020-08-09 13:07 | disposition home or self-care (01) ==
LOC: ER 12:22 → ERHOLD 14:32 → MED/SURG 15:43
PROVIDERS: ADMIT Surgery; ATTEND Surgery
DX: K37 Unspecified appendicitis (principal); Z90.721 Acquired absence of ovaries, unilateral; Z90.710 Acquired absence of both cervix and uterus
CPT/HCPCS: 36415 ×2; 44970; 74177; 80048; 80053; 81001; 81025; 83690; 85025 ×2; 87086; 88304; 93005; 96360; 96361 ×2; 99284; G0378 ×3; J1100; J1885; J2001; J2250; J2405; J2704; J2710; J3010; J7030 ×3; Q9967; U0002; J2270